=== PATIENT | female | born 1955 | race Caucasian/White ===

== ENCOUNTER → 2023-08-24 09:42 | Outpatient (REF) | payer OTHER, SELFPAY | LOC: HWRAD 09:42 | PROVIDERS: ATTENDING PHYSICIAN Obstetrics & Gynecology Gynecology; FAMILY PHYSICIAN Family Medicine | DX: M81.0 Age-related osteoporosis without current pathological fracture (principal); Z12.31 Encounter for screening mammogram for malignant neoplasm of breast | CPT/HCPCS: 77063; 77067; 77080 ==

== ENCOUNTER 2024-08-01 02:00 | Emergency (ER) | payer OTHER, SELFPAY ==
[2024-08-01 02:09] VITALS: BP 128/77
[2024-08-01 03:14] VITALS: BMI 28.8
[2024-08-01 04:00] VITALS: BP 127/72
--- NOTE | 2024-08-01 04:17 | ED.GENMED ---
History of Present Illness
General
Chief Complaint: Head Injury
Source: patient and spouse
Exam Limitations: none
Time Seen by Provider: 08/01/24 03:51
Nursing documentation reviewed up to this point in time: agreed with
History of Present Illness
History of Present Illness:
This is a 69-year-old woman who resides at home with her . No significant past medical history save for hypothyroidism, prior history of kidney stones. She states she awoke suddenly, somewhat startled tonight and rolled out of bed striking
her right posterior parietal scalp on her bedside table. She denies loss of consciousness, denies headache, denies neck nor back pain. She takes no anticoagulants.
She complains of laceration right posterior parietal scalp. Mild bleeding initially which has stopped with local pressure.
She denies dizziness nor lightheadedness. No weakness nor numbness. She took Tylenol prior to arrival.
Up-to-date with Tdap having received this within the past 5 years.
Past History
Past History
ED Past Medical History: Hypothyroidism and Other (Kidney stone)
ED Past Surgical History: and Gynecological
Social History
Tobacco: Non-smoker
Alcohol: Occasional
Drug: None
Personal:
Living: with family
Employment: Retired
Family History
Family History: Other (Noncontributory)
Phy Exam
Physical Exam
Physical Exam:
TRAUMA EXAM:
VITAL SIGNS: Vital signs reviewed, cooperative
DISTRESS: No active disease
EYES: Pupils reactive, no orbital trauma
NOSE: No deformity or epistaxis
FACE AND SCALP: No facial trauma, external canals no blood. There is a 2.5 cm linear laceration right posterior parietal scalp. Laceration is superficial subcutaneous in depth. No active bleeding. No soft tissue swelling nor hematoma. Mild
local tenderness to palpation.
NECK: Supple nontender, full range of motion without difficulty nor pain.
BACK: Back nontender, pelvis stable to compression
RESPIRATORY: No distress, breath sounds normal, no tender chest wall
CARDIAC: No murmur, pulses equal and strong
ABDOMEN: Soft nontender bowel sounds normal
SKIN: Warm and dry, normal color. Good turgor.
EXTREMITIES: Nontender
NEUROLOGICAL: Alert, oriented, no motor deficits. Gait is steady.
PSYCH: Mood affect normal
Course
Orders/Labs/Results
Orders:
Orders
08/01/24 04:16
Doxycycline [Vibramycin] 100 mg PO NOW STA
Vital Signs
Initial and Last Documented VS:
Initial Vital Signs
Temp Pulse Resp BP Pulse Ox
98.4 F 68 18 128/77 95
08/01/24 02:09 08/01/24 02:09 08/01/24 02:09 08/01/24 02:09 08/01/24 02:09
Last Documented Vital Signs
Temp Pulse Resp BP Pulse Ox
98.4 F 68 18 128/77 95
08/01/24 02:09 08/01/24 02:09 08/01/24 02:09 08/01/24 02:09 08/01/24 02:09
Procedures
Laceration Closure
Right Posterior Parietal:
Status of Wound: clean
Size of Wound in cm: 2.5
Description of Wound Edges: sharp
Preparation: cleaned with saline and cleaned with Betadine
Anesthesia: 1% Lidocaine with epi and added Na Bicarb to local
Revision/Debridement: routine- no revision and irrigate-direct pressure
Wound exploration: explored to base- no FB and no tendon involvement
Type of Closure: single layer closure
Skin Closure Material: skin hong
Number of sutures: 5
MDM/Problems Addressed
Differential Diagnosis Includes:
Patient presents with right posterior scalp laceration after inadvertently rolling out of bed, striking her bedside table.
No focal neurodeficits, no headache, takes no anticoagulants. At this point no indication for CT of the head.
Will plan for staple repair of scalp wound.
Will place on short course of doxycycline for infection prevention.
Head injury instructions discussed.
Follow-up with PCP for staple removal in 5 to 7 days.
*Pulse Oximetry
Patient hypoxic: no
*Critical Care Note
Total Time (30-74mins, 75-104mins- exclusive of procedures): Not Applicable
ED Attending Note
-
Portions of this chart may have been created with voice recognition software.� Occasional wrong word or��sound alike� substitutions may have occurred due to the inherent limitations of voice recognition software.
Discharge Plan
Departure
Patient Disposition: Home (Routine Discharge)
Date of Disposition: 08/01/24
Time of Disposition: 04:17
Patient with high blood pressure during this ER visit?: No
Condition: Good
Discharge Problem:
right parietal scalp laceration
Instructions: Head Injury in Adults (DC), Laceration Repair With Beccaria (DC)
Prescriptions:
New
doxycycline monohydrate 100 mg capsule
100 mg PO BID Qty: 10 1RF
Referrals:
Marisol Condon DO [Family Provider] - Follow up in 5-7 days
Interventions
Interventions:
*Risk Screen - Suicide Last Done: 08/01/24 02:02
*General Assessment Last Done: 08/01/24 03:15
*Neglect/Abuse Screening Last Done: 08/01/24 02:02
*ED- Fall Risk Assessment Last Done: 08/01/24 03:13
*ED COVID-19 Vaccine History Last Done: 08/01/24 03:13
ED- Neurological Assessment Last Done: 08/01/24 03:16
ED-Skin Assessment Last Done: 08/01/24 03:16
Discharge Date and Time
Print Language: CHINESE
[2024-08-01] MEDS: VIBRAMYCIN 100 MG PO (04:23)
== END 2024-08-01 04:32 | disposition home or self-care (01) ==
LOC: EMR 02:00
PROVIDERS: EMERGENCY PHYSICIAN Emergency Medicine; FAMILY PHYSICIAN Family Medicine
DX: S01.01XA Laceration without foreign body of scalp, initial encounter (principal); W06.XXXA Fall from bed, initial encounter
CPT/HCPCS: 99282; 12001

== ENCOUNTER → 2024-09-13 11:24 | Outpatient (REF) | payer OTHER, SELFPAY | LOC: HWWDC 11:24 | PROVIDERS: ATTENDING PHYSICIAN Obstetrics & Gynecology Gynecology; FAMILY PHYSICIAN Family Medicine | DX: Z12.31 Encounter for screening mammogram for malignant neoplasm of breast (principal) | CPT/HCPCS: 77063; 77067 ==

== ENCOUNTER 2025-01-31 06:20 | Day surgery (SDC) | payer OTHER, SELFPAY | END 2025-01-31 09:07 | disposition home or self-care (01) | LOC: GI 06:20 | PROVIDERS: ATTENDING PHYSICIAN Surgery | DX: Z12.11 Encounter for screening for malignant neoplasm of colon (principal); D12.5 Benign neoplasm of sigmoid colon; K57.30 Diverticulosis of large intestine without perforation or abscess without bleeding; Z86.0100 Personal history of colon polyps, unspecified; Z87.19 Personal history of other diseases of the digestive system | CPT/HCPCS: 45380; 88305 ==